=== PATIENT | female | born 1980 | race American Indian/Alaskan Native ===

== ENCOUNTER 2016-11-02 09:43 | Emergency (ER) | payer MEDICAID ==
--- NOTE | 2016-11-02 09:47 | EDM.PDOC ---
ED HPI GENERAL MEDICAL PROBLEM - General Chief Complaint: Back Pain or Injury Stated Complaint: [id number] BACK Time Seen by Provider: 11/02/16 09:47 Source of Information: Reports: Patient, RN, RN Notes Reviewed History Limitations: Reports: No Limitations - History of Present Illness INITIAL COMMENTS - FREE TEXT/NARRATIVE: Patient complaining of onset of back pain yesterday. No known injury or activity. Reports pain from base of neck to upper back to the sacrum. Described as an ache with muscle spasm. Denies flank pain or fever or chills. Denies radiating pain, numbness or tingling. Quality: Reports: Ache Severity: Severe Improves with: Reports: None Worsens with: Reports: None Associated Symptoms: Reports: No Other Symptoms Back Pain Score (Numeric/FACES): 6 - Related Data Allergies Allergy/AdvReac Type Severity Reaction Status Date / Time No Known Allergies Allergy Verified 11/02/16 09:55 Home Meds: Home Meds FLUoxetine [PROzac] 20 mg PO DAILY 11/02/16 [History] Gabapentin [Gabapentin] 600 mg PO TID 11/02/16 [History] Omeprazole 20 mg PO DAILY 11/02/16 [History] traZODone HCl [Trazodone HCl] 100 mg PO DAILY 11/02/16 [History] Social & Family History - Family History Family Medical History: Noncontributory ED ROS GENERAL - Review of Systems Review Of Systems: ROS reveals no pertinent complaints other than HPI. ED EXAM,LOWER BACK PAIN/INJURY - Physical Exam Exam: See Below Exam Limited By: No Limitations General Appearance: Alert, WD/WN, No Apparent Distress Neck: Normal Inspection, Supple, Non-Tender, Full Range of Motion Respiratory/Chest: No Respiratory Distress Cardiovascular: Normal Peripheral Pulses, Regular Rate, Rhythm, No Edema, No Gallop, No JVD, No Murmur, No Rub GI/Abdominal: Normal Bowel Sounds, Soft, Non-Tender, No Organomegaly, No Distention, No Abnormal Bruit, No Mass Back Exam: Other (generalized paraspinal and midline tenderness throughout T and L spine with muscle spasms and decreased ROM.) Course - Vital Signs Last Recorded V/S: Last Vital Signs Temp 36.0 C 11/02/16 09:58 Pulse 83 11/02/16 09:58 Resp 16 06/11/17 09:58 BP 104/73 11/02/16 09:58 Pulse Ox 98 11/02/16 09:58 - Orders/Labs/Meds Orders: Active Orders 24 hr Category Date Time Status UA W/MICROSCOPIC [URIN] Stat Lab 11/02/16 09:52 Results Labs: Laboratory Tests 11/02/16 11/02/16 11/02/16 Range/Units 09:52 09:52 09:52 Urine Color Yellow (YELLOW) Urine Appearance Slightly cloudy (CLEAR) Urine pH 7.0 (5.0-9.0) Ur Specific [place] 1.015 (1.005-1.030) Urine Protein Negative (NEGATIVE) Urine Glucose (UA) Negative (NEGATIVE) Urine Ketones Negative (NEGATIVE) Urine Occult Blood Negative (NEGATIVE) Urine Nitrite Positive H (NEGATIVE) Urine Bilirubin Negative (NEGATIVE) Urine Urobilinogen 0.2 (0.2-1.0) mg/dL Ur Leukocyte Esterase Trace H (NEGATIVE) Urine HCG, Qual Negative Urine Opiates Screen Negative (NEGATIVE) Ur Oxycodone Screen Negative (NEGATIVE) Urine Methadone Screen Negative (NEGATIVE) Ur Barbiturates Screen Negative (NEGATIVE) U Tricyclic Antidepress Negative (NEGATIVE) Ur Phencyclidine Scrn Negative (NEGATIVE) Ur Amphetamine Screen Negative (NEGATIVE) U Methamphetamines Scrn Negative (NEGATIVE) Urine MDMA Screen Negative (NEGATIVE) U Benzodiazepines Scrn Negative (NEGATIVE) Urine Cocaine Screen Negative (NEGATIVE) U Marijuana (THC) Screen Negative (NEGATIVE) Meds: Medications Discontinued Medications Generic Name Dose Route Start Last Admin Trade Name Freq PRN Reason Stop Dose Admin Cyclobenzaprine HCl 10 mg 11/02/16 10:07 11/02/16 10:16 Flexeril PO 11/02/16 10:08 10 mg ONETIME ONE Administration Ketorolac Tromethamine 60 mg 11/02/16 10:06 11/02/16 10:16 Toradol IM 11/02/16 10:07 60 mg ONETIME ONE Administration Departure - Departure Time of Disposition: 10:27 Disposition: Home, Self-Care 01 Condition: good Clinical Impression: Muscle spasm of back, Pyelonephritis Acute back pain Qualifiers: Back pain location: back pain in unspecified location Back pain laterality: midline Qualified Code(s): M54.9 - Dorsalgia, unspecified - Discharge Information Instructions: Back Pain, Adult, [id number], Pyelonephritis, Adult, Easy-to- Read Forms: ED Department Discharge Additional Instructions: RX: Cephalexin 500mg. RX: Cyclobenzaprine 10mg. RX: Naprosyn 500mg. Alternate heat and ice to the back. Activity as tolerated. Follow up in clinic this week, if not improving. - My Orders Last 24 Hours: My Active Orders 11/02/16 09:52 UA W/MICROSCOPIC [URIN] Stat - Assessment/Plan Last 24 Hours: My Active Orders 11/02/16 09:52 UA W/MICROSCOPIC [URIN] Stat
[2016-11-02 10:01] VITALS: BP 104/73
[2016-11-02] MEDS ORDERED: Ketorolac 30 MG/ML SDV IM ONE (10:06)
[2016-11-02] MEDS ORDERED: Cyclobenzaprine 10 MG Tab PO ONE (10:07)
[2016-11-02] MEDS ORDERED: Cephalexin 500 MG Cap PO ONE (10:26)
== END 2016-11-02 10:32 | disposition home or self-care (01) ==
LOC: DL.ED 09:43
DX: M62.830 Muscle spasm of back (principal); N12 Tubulo-interstitial nephritis, not specified as acute or chronic; M54.9 Dorsalgia, unspecified; Z79.899 Other long term (current) drug therapy
CPT/HCPCS: 80305; 81001; 81025; 96372; 99284; A9270; J1885

== ENCOUNTER 2016-11-24 14:12 | Emergency (ER) | payer MEDICAID ==
[2016-11-24 15:01] VITALS: BP 97/68
[2016-11-24] MEDS ORDERED: HYDROmorphone 1 MG/ML Syringe IVPUSH ONE ×2 (16:18→17:55)
[2016-11-24] MEDS ORDERED: Ondansetron 4 MG/2 ML SDV IV ONE (16:18)
[2016-11-24] MEDS ORDERED: Sodium Chloride 0.9% 1,000 ML IV ONE (16:18)
[2016-11-24] MEDS ORDERED: cefTRIAXone 1 GM in Sodium Chloride 0.9% 50 ML IV ONE (16:18)
[2016-11-24] MEDS ORDERED: Sodium Chloride 0.9% 10 ML Syringe FLUSH PRN (16:18)
[2016-11-24] MEDS ORDERED: Ketorolac 30 MG/ML SDV IVPUSH ONE (16:18)
[2016-11-24 16:53] LABS: CHLORIDE,CL 105 mmol/L (101-111); SODIUM,NA 141 mmol/L (135-145)
--- NOTE | 2016-11-24 17:04 | CT ---
Clinical history: 36-year-old female smoker with hematuria, a history of "kidney stones" and now lef t flank pain. Scan technique: Volume acquisition of data emergency unenhanced CT scan of the abdomen and pelvis (" stone study" kidneys/ureters/bladder) obtained with patient lying supine on the Siemens multi slice CT scanner [place], [place]. All data archived in the PACS system for storage, reformatting and study. Interpretation: 1. Surgically absent gallbladder (clips RUQ). 2. *Normal reniform size, axis and configuration. No sign of nephrolithiasis or pyelocaliectasis, ei ther kidney. Several punctate calcifications within the bony pelvis, on the left, appeared to lie outside the cou rse of the ureter without associated ureterectasis i.e. suggests probable phleboliths (no comparison exams immediately available at this institution). 3. Numerous diverticula in the sigmoid colon without current signs of associated inflammation. Marleen l appendix RLQ. 4. Normal midline uterus. Small cysts left ovary and a 2 cm diameter cyst right adnexa presumably ov lyubov in origin. 5. No other pelvic or abdominal mass lesion, inflammatory "dirty" peritoneal fat, signs of mechanica l bowel obstruction, ascites or free intraperitoneal air. Unenhanced liver, stomach, spleen, pancrea s and adrenal glands unremarkable. 6. Normal caliber aortoiliac vessels. Lumbar spine unremarkable. CONCLUSION: Sigmoid diverticulosis. Small ovarian cysts, bilaterally. Probable phleboliths pelvis, on the left (tiny nonobstructing ureterolith possible but unlikely). Cl inical?
--- NOTE | 2016-11-24 18:18 | EDM.PDOC ---
Scribed by Wendy Dave 11/24/16 [id number] for Orion Bear MD ED HPI GENERAL MEDICAL PROBLEM - General Chief Complaint: Back Pain or Injury Stated Complaint: BACK PAINS, VOMITTING, [id number] Time Seen by Provider: 11/24/16 15:05 Source of Information: Reports: Patient, RN, RN Notes Reviewed History Limitations: Reports: No Limitations - History of Present Illness INITIAL COMMENTS - FREE TEXT/NARRATIVE: Complained of onset of left flank pain yesterday with fever, chills, nausea and vomiting. The pain radiates from the left flank to the LLQ and groin. Quality: Reports: Ache Severity: Severe Improves with: Reports: None Worsens with: Reports: None Associated Symptoms: Reports: No Other Symptoms Middle Back Pain Score (Numeric/FACES): 7 - Related Data Allergies Allergy/AdvReac Type Severity Reaction Status Date / Time No Known Allergies Allergy Verified 11/24/16 14:56 Home Meds: Home Meds FLUoxetine [PROzac] 20 mg PO DAILY 11/02/16 [History] Gabapentin [Gabapentin] 600 mg PO TID 11/02/16 [History] Omeprazole 20 mg PO DAILY 11/02/16 [History] traZODone HCl [Trazodone HCl] 100 mg PO DAILY 11/02/16 [History] Past Medical History HEENT History: Reports: Impaired Vision Genitourinary History: Reports: Renal Calculus Musculoskeletal History: Reports: Other (See Below) Other Musculoskeletal History: scoliosis as a child Neurological History: Reports: Neuropathy, Peripheral Psychiatric History: Reports: Depression - Past Surgical History GI Surgical History: Reports: Hernia, Inguinal Social & Family History - Family History Family Medical History: Noncontributory - Tobacco Use Smoking Status *Q: Current Every Day Smoker Years of Tobacco use: 21 Packs/Tins Daily: 1 - Caffeine Use Caffeine Use: Reports: Coffee, Energy Drinks, Soda - Recreational Drug Use Recreational Drug Use: No ED ROS GENERAL - Review of Systems Review Of Systems: ROS reveals no pertinent complaints other than HPI. ED EXAM,LOWER BACK PAIN/INJURY - Physical Exam Exam: See Below Exam Limited By: No Limitations General Appearance: Other (tearful) Head: Atraumatic, Normocephalic Neck: Normal Inspection, Supple, Non-Tender, Full Range of Motion Respiratory/Chest: No Respiratory Distress, Lungs Clear, Normal Breath Sounds, No Accessory Muscle Use, Chest Non-Tender Cardiovascular: Normal Peripheral Pulses, Regular Rate, Rhythm, No Edema, No Gallop, No JVD, No Murmur, No Rub GI/Abdominal: Other (LUQ and LLQ tenderness otherwise normal.) Back Exam: CVA Tenderness (L) Extremities: Normal Inspection, Normal Range of Motion, Non-Tender, No Pedal Edema, Normal Capillary Refill Neurological: Alert, Normal Mood/Affect, Normal Dorsiflexion, CN II-XII Intact, Normal Plantar Flexion, Normal Gait, Normal Reflexes, No Motor/Sensory Deficits , Oriented x 3 Psychiatric: Normal Affect, Normal Mood Skin Exam: Warm Course - Vital Signs Last Recorded V/S: Last Vital Signs Temp 36.6 C 11/24/16 14:57 Pulse 100 11/24/16 14:57 Resp 16 11/24/16 14:57 BP 97/68 11/24/16 14:57 Pulse Ox 100 11/24/16 14:57 - Orders/Labs/Meds Orders: Active Orders 24 hr Category Date Time Status Peripheral IV Care [RC] . DIRECTED Care 11/24/16 16:18 Active CULTURE URINE [RM] Stat Lab 11/24/16 15:05 Received Sodium Chloride 0.9% [Saline Flush] Med 11/24/16 16:18 Active 10 ml FLUSH ASDIRECTED PRN Peripheral IV Insertion Adult [OM.PC] Stat Oth 11/24/16 16:18 Ordered Medication Orders Sodium Chloride (Saline Flush) 10 ml FLUSH ASDIRECTED PRN PRN Reason: Keep Vein Open Last Admin: 11/24/16 16:21 Dose: 10 ml Labs: Laboratory Tests 11/24/16 11/24/16 11/24/16 Range/Units 15:05 15:05 16:26 WBC 10.1 H (5.0-10.0) 10^3/uL RBC 4.61 (4.2-5.4) 10^6/uL Hgb 12.4 (12.0-16.0) g/dL Hct 38.8 (37.0-47.0) % MCV 84.2 (80-100) fL MCH 26.9 L (27.0-34.0) pg MCHC 32.0 L (33.0-35.0) g/dL Plt Count 312 (150-450) 10^3/uL Neut % (Auto) 54.8 (42.2-75.2) % Lymph % (Auto) 33.7 (20.5-50.1) % Jack % (Auto) 7.0 (2-8) % Eos % (Auto) 4.1 H (1.0-3.0) % Baso % (Auto) 0.4 (0.0-1.0) % Sodium (135-145) mmol/L Potassium (3.6-5.0) mmol/L Chloride (101-111) mmol/L Carbon Dioxide (21.0-31.0) mmol/L Anion Gap BUN (7-18) mg/dL Creatinine (0.6-1.3) mg/dL Est Cr Clr Drug Dosing mL/min Estimated GFR (MDRD) BUN/Creatinine Ratio Glucose (74-105) mg/dL Calcium (8.4-10.2) mg/dl Total Bilirubin (0.2-1.0) mg/dL AST (10-42) IU/L ALT (10-60) IU/L Alkaline Phosphatase (42-121) IU/L Total Protein (6.7-8.2) g/dl Albumin (3.2-5.5) g/dl Globulin Albumin/Globulin Ratio Urine Color Dark yellow (YELLOW) Urine Appearance Cloudy (CLEAR) Urine pH 7.0 (5.0-9.0) Ur Specific [place] 1.020 (1.005-1.030) Urine Protein Trace H (NEGATIVE) Urine Glucose (UA) Negative (NEGATIVE) Urine Ketones Trace H (NEGATIVE) Urine Occult Blood Negative (NEGATIVE) Urine Nitrite Positive H (NEGATIVE) Urine Bilirubin Small H (NEGATIVE) Urine Urobilinogen 2.0 H (0.2-1.0) mg/dL Ur Leukocyte Esterase Small H (NEGATIVE) Urine RBC 0-5 /HPF Urine WBC 10-20 H (0-5/HPF) /HPF Ur Epithelial Cells Moderate H /HPF Urine Bacteria Many H (0-FEW/HPF) /HPF Urine Mucus Rare /LPF Urine HCG, Qual Negative 11/24/16 Range/Units 16:26 WBC (5.0-10.0) 10^3/uL RBC (4.2-5.4) 10^6/uL Hgb (12.0-16.0) g/dL Hct (37.0-47.0) % MCV (80-100) fL MCH (27.0-34.0) pg MCHC (33.0-35.0) g/dL Plt Count (150-450) 10^3/uL Neut % (Auto) (42.2-75.2) % Lymph % (Auto) (20.5-50.1) % Jack % (Auto) (2-8) % Eos % (Auto) (1.0-3.0) % Baso % (Auto) (0.0-1.0) % Sodium 141 (135-145) mmol/L Potassium 3.9 (3.6-5.0) mmol/L Chloride 105 (101-111) mmol/L Carbon Dioxide 25.0 (21.0-31.0) mmol/L Anion Gap 14.9 BUN 15 (7-18) mg/dL Creatinine 0.8 (0.6-1.3) mg/dL Est Cr Clr Drug Dosing 69.16 mL/min Estimated GFR (MDRD) > 60 BUN/Creatinine Ratio 18.75 Glucose 83 (74-105) mg/dL Calcium 9.1 (8.4-10.2) mg/dl Total Bilirubin 0.6 (0.2-1.0) mg/dL AST 85 H (10-42) IU/L ALT 109 H (10-60) IU/L Alkaline Phosphatase 94 (42-121) IU/L Total Protein 7.1 (6.7-8.2) g/dl Albumin 3.8 (3.2-5.5) g/dl Globulin 3.3 Albumin/Globulin Ratio 1.15 Urine Color (YELLOW) Urine Appearance (CLEAR) Urine pH (5.0-9.0) Ur Specific [place] (1.005-1.030) Urine Protein (NEGATIVE) Urine Glucose (UA) (NEGATIVE) Urine Ketones (NEGATIVE) Urine Occult Blood (NEGATIVE) Urine Nitrite (NEGATIVE) Urine Bilirubin (NEGATIVE) Urine Urobilinogen (0.2-1.0) mg/dL Ur Leukocyte Esterase (NEGATIVE) Urine RBC /HPF Urine WBC (0-5/HPF) /HPF Ur Epithelial Cells /HPF Urine Bacteria (0-FEW/HPF) /HPF Urine Mucus /LPF Urine HCG, Qual Meds: Medications Generic Name Dose Route Start Last Admin Trade Name Gela PRN Reason Stop Dose Admin Sodium Chloride 10 ml 11/24/16 16:18 11/24/16 16:21 Saline Flush FLUSH 10 ml ASDIRECTED PRN Administration Keep Vein Open Discontinued Medications Generic Name Dose Route Start Last Admin Trade Name Gela PRN Reason Stop Dose Admin Hydromorphone HCl 1 mg 11/24/16 16:18 11/24/16 16:31 Dilaudid IVPUSH 11/24/16 16:19 1 mg ONETIME ONE Administration Hydromorphone HCl 1 mg 11/24/16 17:55 11/24/16 18:07 Dilaudid IVPUSH 11/24/16 17:56 1 mg ONETIME ONE Administration Sodium Chloride 1,000 mls @ 999 mls/hr 11/24/16 16:18 11/24/16 16:27 Normal Saline IV 11/24/16 17:18 999 mls/hr .BOLUS ONE Administration Ceftriaxone Sodium 1 gm/ 50 mls @ 100 mls/hr 11/24/16 16:18 11/24/16 16:27 Sodium Chloride IV 11/24/16 16:47 100 mls/hr ONETIME ONE Administration Ketorolac Tromethamine 30 mg 11/24/16 16:18 11/24/16 16:30 Toradol IVPUSH 11/24/16 16:19 30 mg ONETIME ONE Administration Ondansetron HCl 4 mg 11/24/16 16:18 11/24/16 16:31 Zofran IV 11/24/16 16:19 4 mg ONETIME ONE Administration - Radiology Interpretation Free Text/Narrative:: CT scan abdomen and pelvis: Per rad report reveals sigmoid diverticulosis. Small ovarian cysts, bilaterally. Probable phleboliths pelvis, on the left ( tiny nonobstructing ureterolith possible but unlikely. Departure - Departure Time of Disposition: 18:16 Disposition: Home, Self-Care 01 Condition: Fair Clinical Impression: Pyelonephritis - Discharge Information Instructions: Pyelonephritis, Adult, [id number] Forms: ED Department Discharge Additional Instructions: RX: Pyridium 200mg. RX: Cipro 500mg. RX: Phenergan 25mg. Follow up in clinic in 2-3 days for recheck. - My Orders Last 24 Hours: My Active Orders 11/24/16 15:05 CULTURE URINE [RM] Stat 07/03/17 16:18 Peripheral IV Care [RC] . DIRECTED Sodium Chloride 0.9% [Saline Flush] 10 ml FLUSH ASDIRECTED PRN Peripheral IV Insertion Adult [OM.PC] Stat - Assessment/Plan Last 24 Hours: My Active Orders 11/24/16 15:05 CULTURE URINE [RM] Stat 11/24/16 16:18 Peripheral IV Care [RC] . DIRECTED Sodium Chloride 0.9% [Saline Flush] 10 ml FLUSH ASDIRECTED PRN Peripheral IV Insertion Adult [OM.PC] Stat I have read and agree with the documentation that has been completed regarding this visit. By signing this record, I attest that the documentation was completed in my physical presence and is an accurate record of the encounter.
== END 2016-11-24 18:23 | disposition home or self-care (01) ==
LOC: DL.ED 14:12
DX: N12 Tubulo-interstitial nephritis, not specified as acute or chronic (principal); H54.7 Unspecified visual loss; F17.210 Nicotine dependence, cigarettes, uncomplicated; Z79.899 Other long term (current) drug therapy
CPT/HCPCS: 36415; 74176; 80053; 81001; 81025; 85025; 87086; 96365; 96375; 96376; 99284; J0696; J1170; J1885; J2405; J7030; J7050; 87077; 87088; 87186

== ENCOUNTER 2016-12-14 00:07 | Emergency (ER) | payer MEDICAID ==
[2016-12-14 00:31] VITALS: BP 101/66
--- NOTE | 2016-12-14 00:47 | EDM.PDOC ---
ED HPI GENERAL MEDICAL PROBLEM - General Chief Complaint: ENT Problem Stated Complaint: ALLERGIES AND EARS ARE DRAINING Time Seen by Provider: 12/14/16 00:44 Source of Information: Reports: Patient History Limitations: Reports: No Limitations - History of Present Illness INITIAL COMMENTS - FREE TEXT/NARRATIVE: c/o LBP & ear pain with drainage. gives h/o pyelo lower back Pain Score (Numeric/FACES): 7 - Related Data Allergies Allergy/AdvReac Type Severity Reaction Status Date / Time No Known Allergies Allergy Verified 12/14/16 00:22 Home Meds: Home Meds FLUoxetine [PROzac] 20 mg PO DAILY 11/02/16 [History] Gabapentin [Gabapentin] 600 mg PO TID 11/02/16 [History] Omeprazole 20 mg PO DAILY 11/02/16 [History] traZODone HCl [Trazodone HCl] 100 mg PO DAILY 11/02/16 [History] Past Medical History HEENT History: Reports: Impaired Vision Cardiovascular History: Reports: None Respiratory History: Reports: Asthma Gastrointestinal History: Reports: None Genitourinary History: Reports: Renal Calculus 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 Musculoskeletal History: Reports: Other (See Below) Other Musculoskeletal History: scoliosis as a child Neurological History: Reports: Neuropathy, Peripheral Psychiatric History: Reports: Depression Endocrine/Metabolic History: Reports: None Hematologic History: Reports: None Immunologic History: Reports: None Oncologic (Cancer) History: Reports: None Dermatologic History: Reports: None - Infectious Disease History Infectious Disease History: Reports: None - Past Surgical History Head Surgeries/Procedures: Reports: None GI Surgical History: Reports: Hernia, Inguinal Female Surgical History: Reports: None Musculoskeletal Surgical History: Reports: None Social & Family History - Family History Family Medical History: Noncontributory - Tobacco Use Smoking Status *Q: Current Every Day Smoker Years of Tobacco use: 20 Packs/Tins Daily: 0.5 - Caffeine Use Caffeine Use: Reports: Coffee - Recreational Drug Use Recreational Drug Use: Yes Drug Use in Last 12 Months: Yes Recreational Drug Type: Reports: Methamphetamine Other Recreational Drug Type: quit in august 2016 Recreational Drug Use Frequency: Not Used In Over 5 Months ED ROS ENT - Review of Systems Review Of Systems: ROS reveals no pertinent complaints other than HPI. ED EXAM, ENT - Physical Exam Exam: See Below Exam Limited By: No Limitations General Appearance: Alert, WD/WN, No Apparent Distress Ears: Hearing Grossly Normal, Canal Swelling, TM Dullness Mouth/Throat: Normal Inspection, Normal Oropharynx Head: Atraumatic Neck: Non-Tender, Full Range of Motion Respiratory/Chest: No Respiratory Distress Cardiovascular: Regular Rate, Rhythm GI/Abdominal: Soft, Non-Tender Back: Muscle Spasm, Other (LS, without radiculitis) Neurological: Alert, Oriented, Normal Cognition, No Motor/Sensory Deficits Psychiatric: Normal Affect, Normal Mood Skin: Warm, Dry Lymphatic: No Adenopathy Course - Vital Signs Last Recorded V/S: Last Vital Signs Temp 36.1 C 12/14/16 00:30 Pulse 95 12/14/16 00:30 Resp 16 12/14/16 00:30 BP 101/66 12/14/16 00:30 Pulse Ox 97 12/14/16 00:30 - Orders/Labs/Meds Orders: Active Orders 24 hr Category Date Time Status Sulfamethoxazole/Trimethoprim [Septra DS] Med 12/14/16 01:15 Once 1 tab PO ONETIME ONE Labs: Laboratory Tests 12/14/16 12/14/16 Range/Units 00:45 00:45 Urine Color Yellow (YELLOW) Urine Appearance Slightly cloudy (CLEAR) Urine pH 5.5 (5.0-9.0) Ur Specific [place] 1.025 (1.005-1.030) Urine Protein Negative (NEGATIVE) Urine Glucose (UA) Negative (NEGATIVE) Urine Ketones Negative (NEGATIVE) Urine Occult Blood Small H (NEGATIVE) Urine Nitrite Negative (NEGATIVE) Urine Bilirubin Small H (NEGATIVE) Urine Urobilinogen 0.2 (0.2-1.0) mg/dL Ur Leukocyte Esterase Trace H (NEGATIVE) Urine RBC 0-5 /HPF Urine WBC 10-20 H (0-5/HPF) /HPF Ur Epithelial Cells Many H /HPF Calcium Oxalate Crystal Few H /HPF Urine Bacteria Many H (0-FEW/HPF) /HPF Urine Mucus Rare /LPF Urine HCG, Qual Negative - Re-Assessments/Exams Free Text/Narrative Re-Assessment/Exam: 12/14/16 01:16 results discussed with pt. Departure - Departure Time of Disposition: 01:16 Disposition: Home, Self-Care 01 Condition: Good Clinical Impression: Muscle spasm of back Otitis externa Qualifiers: Otitis externa type: diffuse Chronicity: unspecified Laterality: bilateral Qualified Code(s): H60.313 - Diffuse otitis externa, bilateral - Discharge Information Instructions: Ear Drainage, [id number] Forms: ED Department Discharge Additional Instructions: 1) don't get water into ears 2) try heat to sore areas 3) follow up at clinic rx given; corticosporin otic flexeril 10mg bactrim DS - My Orders Last 24 Hours: My Active Orders 12/14/16 01:15 Sulfamethoxazole/Trimethoprim [Septra DS] 1 tab PO ONETIME ONE - Assessment/Plan Last 24 Hours: My Active Orders 12/14/16 01:15 Sulfamethoxazole/Trimethoprim [Septra DS] 1 tab PO ONETIME ONE
[2016-12-14] MEDS ORDERED: Sulfamethoxazole/Trimethoprim 800-160 MG Tab PO ONE (01:15)
[2016-12-14] MEDS ORDERED: Hydrocortisone/Neomycin/Polymyxin B Otic Susp 10 ML Bottle ONE (01:35)
[2016-12-14] MEDS ORDERED: Hydrocortisone/Neomycin/Polymyxin B Otic Susp 10 ML Bottle EARBOTH ONE (01:35)
[2016-12-14] MEDS ORDERED: Acetaminophen/HYDROcodone 325-10 MG Tab ONE (01:35)
== END 2016-12-14 01:45 | disposition home or self-care (01) ==
LOC: DL.ED 00:07
DX: H60.313 Diffuse otitis externa, bilateral (principal); M62.830 Muscle spasm of back; H54.7 Unspecified visual loss; J45.909 Unspecified asthma, uncomplicated; F32.9 Major depressive disorder, single episode, unspecified; F17.210 Nicotine dependence, cigarettes, uncomplicated; Z79.899 Other long term (current) drug therapy
CPT/HCPCS: 81001; 81025; 99283; A9270

== ENCOUNTER 2017-01-05 23:14 | Emergency (ER) | payer MEDICAID ==
[2017-01-05] MEDS ORDERED: Sodium Chloride 0.9% 1,000 ML IV ONE (23:18)
[2017-01-05] MEDS ORDERED: Pantoprazole 40 MG Vial IVPUSH ONE (23:18)
--- NOTE | 2017-01-05 23:21 | EDM.PDOC ---
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 Epigastric Pain Score (Numeric/FACES): 7 - Related Data Allergies Allergy/AdvReac Type Severity Reaction Status Date / Time No Known Allergies Allergy Verified 01/05/17 23:28 Home Meds: Home Meds FLUoxetine [PROzac] 20 mg PO DAILY 11/02/16 [History] Gabapentin [Gabapentin] 600 mg PO TID 11/02/16 [History] Omeprazole 20 mg PO DAILY 11/02/16 [History] traZODone HCl [Trazodone HCl] 100 mg PO DAILY 11/02/16 [History] Loratadine [Claritin] 10 mg PO DAILY 01/05/17 [History] Past Medical History HEENT History: Reports: Impaired Vision Cardiovascular History: Reports: None Respiratory History: Reports: Asthma Gastrointestinal History: Reports: None Genitourinary History: Reports: Renal Calculus AIDS SOCIAL WORKER History: Reports: 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 Musculoskeletal History: Reports: Other (See Below) Other Musculoskeletal History: scoliosis as a child Neurological History: Reports: Neuropathy, Peripheral Psychiatric History: Reports: Depression Endocrine/Metabolic History: Reports: None Hematologic History: Reports: None Immunologic History: Reports: None Oncologic (Cancer) History: Reports: None Dermatologic History: Reports: None - Infectious Disease History Infectious Disease History: Reports: None - Past Surgical History Head Surgeries/Procedures: Reports: None GI Surgical History: Reports: Hernia, Inguinal Female Surgical History: Reports: None Musculoskeletal Surgical History: Reports: None Social & Family History - Family History Family Medical History: Noncontributory - Tobacco Use Smoking Status *Q: Current Every Day Smoker Years of Tobacco use: 20 Packs/Tins Daily: 0.5 - Caffeine Use Caffeine Use: Reports: Coffee - Recreational Drug Use Recreational Drug Use: Yes Drug Use in Last 12 Months: Yes Recreational Drug Type: Reports: Methamphetamine Other Recreational Drug Type: quit in august 2016 Recreational Drug Use Frequency: Not Used In Over 5 Months ED ROS GENERAL - Review of Systems Review Of Systems: ROS reveals no pertinent complaints other than HPI. ED EXAM, GI/ABD - Physical Exam Exam: See Below Exam Limited By: No Limitations General Appearance: Alert, WD/WN, Mild Distress, Other (upset) Ears: Hearing Grossly Normal Throat/Mouth: Normal Voice, No Airway Compromise Head: Atraumatic Neck: Non-Tender, Full Range of Motion Respiratory/Chest: No Respiratory Distress Cardiovascular: Regular Rate, Rhythm GI/Abdominal Exam: Tender, Other (epiG). No: Guarding, Rigid, Rebound Neurological: Alert, Oriented, Normal Cognition, Normal Gait, No Motor/Sensory Deficits Psychiatric: Tearful Skin Exam: Warm, Dry, Normal Color Lymphatic: No Adenopathy Course - Vital Signs Last Recorded V/S: Last Vital Signs Temp 35.7 C 01/05/17 23:31 Pulse 64 01/06/17 01:26 Resp 16 01/05/17 23:31 BP 114/81 01/06/17 01:26 Pulse Ox 100 01/06/17 01:26 - Orders/Labs/Meds Labs: Laboratory Tests 01/05/17 01/05/17 Range/Units 23:21 23:21 WBC 10.6 H (5.0-10.0) 10^3/uL RBC 4.25 (4.2-5.4) 10^6/uL Hgb 11.5 L (12.0-16.0) g/dL Hct 35.4 L (37.0-47.0) % MCV 83.3 (80-100) fL MCH 27.1 (27.0-34.0) pg MCHC 32.5 L (33.0-35.0) g/dL Plt Count 350 (150-450) 10^3/uL Neut % (Auto) 52.2 (42.2-75.2) % Lymph % (Auto) 33.7 (20.5-50.1) % [place] % (Auto) 9.0 H (2-8) % Eos % (Auto) 4.7 H (1.0-3.0) % Baso % (Auto) 0.4 (0.0-1.0) % Sodium 141 (135-145) mmol/L Potassium 3.4 L (3.6-5.0) mmol/L Chloride 105 (101-111) mmol/L Carbon Dioxide 22.0 (21.0-31.0) mmol/L Anion Gap 17.4 BUN 12 (7-18) mg/dL Creatinine 0.7 (0.6-1.3) mg/dL Est Cr Clr Drug Dosing 78.27 mL/min Estimated GFR (MDRD) > 60 BUN/Creatinine Ratio 17.14 Glucose 96 (74-105) mg/dL Calcium 9.0 (8.4-10.2) mg/dl Total Bilirubin 0.4 (0.2-1.0) mg/dL AST 85 H (10-42) IU/L ALT 90 H (10-60) IU/L Alkaline Phosphatase 77 (42-121) IU/L Total Protein 7.1 (6.7-8.2) g/dl Albumin 3.8 (3.2-5.5) g/dl Globulin 3.3 Albumin/Globulin Ratio 1.15 Amylase 34 (28-100) U/L Lipase 29 (22-51) U/L Meds: Medications Discontinued Medications Generic Name Dose Route Start Last Admin Trade Name Freq PRN Reason Stop Dose Admin Al Hydroxide/Mg Hydroxide 30 ml 01/06/17 01:16 01/06/17 01:24 Gi Cocktail PO 01/06/17 01:17 30 ml ONETIME ONE Administration Sodium Chloride 1,000 mls @ 500 mls/hr 01/05/17 23:18 01/05/17 23:51 Normal Saline IV 01/06/17 01:17 500 mls/hr .BOLUS ONE Administration Pantoprazole Sodium 80 mg 01/05/17 23:18 01/05/17 23:53 Protonix Iv IVPUSH 01/05/17 23:19 80 mg .BOLUS ONE Administration - Re-Assessments/Exams Free Text/Narrative Re-Assessment/Exam: 01/06/17 01:19 results discussed with pt who had no further episode of vomiting blood since being here. still c/o some epig burning sensation. states had gastroscope 1 1/2 year ago in [place] 01/06/17 01:39 re-exam; s/p GI cocktail = better but not 100% Departure - Departure Time of Disposition: 01:39 Disposition: Home, Self-Care 01 Condition: Good Clinical Impression: Peptic ulcer, Abdominal pain - Discharge Information Instructions: Abdominal Pain, Adult, [id number] Forms: ED Department Discharge Additional Instructions: 1) see clinic tomorrow for GASTROSCOPY 2) avoid fatty oily fried spicy foods 3) recheck as needed
[2017-01-05 23:49] LABS: CHLORIDE,CL 105 mmol/L (101-111); SODIUM,NA 141 mmol/L (135-145)
[2017-01-06] MEDS ORDERED: GI Cocktail Oral Solution 30 ML PO ONE (01:16)
[2017-01-06 01:27] VITALS: BP 114/81
[2017-01-06] MEDS ORDERED: LORazepam 1 MG Tab ONE (01:44)
[2017-01-06] MEDS ORDERED: LORazepam 1 MG Tab PO ONE (01:44)
== END 2017-01-06 01:57 | disposition home or self-care (01) ==
LOC: DL.ED 23:14
DX: K27.9 Peptic ulcer, site unspecified, unspecified as acute or chronic, without hemorrhage or perforation (principal); H54.7 Unspecified visual loss; J45.909 Unspecified asthma, uncomplicated; F17.210 Nicotine dependence, cigarettes, uncomplicated; Z79.899 Other long term (current) drug therapy; Z98.890 Other specified postprocedural states
CPT/HCPCS: 36415; 80053; 82150; 83690; 85025; 96365; 96366; 96375; 99284; A9270; C9113; J7030

== ENCOUNTER 2017-01-06 12:58 | Emergency (ER) | payer MEDICAID ==
[2017-01-06 13:10] VITALS: BP 99/63
[2017-01-06] MEDS ORDERED: Sodium Chloride 0.9% 1,000 ML IV ONE (13:22)
[2017-01-06] MEDS ORDERED: Pantoprazole 40 MG Vial IVPUSH ONE (13:42)
[2017-01-06] MEDS ORDERED: Ondansetron 4 MG/2 ML SDV IV ONE (13:42)
--- NOTE | 2017-01-06 13:47 | EDM.PDOC ---
ED HPI GENERAL MEDICAL PROBLEM - General Chief Complaint: Gastrointestinal Problem Stated Complaint: [id number] STOMACH THROWING UP BLOOD Time Seen by Provider: 01/06/17 13:35 Source of Information: Reports: Patient History Limitations: Reports: No Limitations - History of Present Illness INITIAL COMMENTS - FREE TEXT/NARRATIVE: This 37 yo female patient reports to the ED with burning in her stomach, vomiting blood and have bloody stools. The patient reports she ran out of her Omeprazole about 1 week ago and has not had an appointment to fill her prescription. The patient was seen in the ED last night for the same symptoms, but has not gotten any better. The patient reports she has an appointment scheduled for next week to discuss endoscopy. Onset: Gradual Duration: Day(s):, Constant, Getting Worse Location: Reports: Abdomen Quality: Reports: Ache, Burning, Dull Severity: Moderate Improves with: Reports: None Worsens with: Reports: None Associated Symptoms: Reports: No Other Symptoms Abdomen Pain Score (Numeric/FACES): 7 - Related Data Allergies Allergy/AdvReac Type Severity Reaction Status Date / Time No Known Allergies Allergy Verified 01/05/17 23:28 Home Meds: Home Meds FLUoxetine [PROzac] 20 mg PO DAILY 11/02/16 [History] Gabapentin [Gabapentin] 600 mg PO TID 11/02/16 [History] Omeprazole 20 mg PO DAILY 11/02/16 [History] traZODone HCl [Trazodone HCl] 100 mg PO DAILY 11/02/16 [History] Loratadine [Claritin] 10 mg PO DAILY 01/05/17 [History] Past Medical History HEENT History: Reports: Impaired Vision Cardiovascular History: Reports: None Respiratory History: Reports: Asthma Gastrointestinal History: Reports: None Genitourinary History: Reports: Renal Calculus 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 Musculoskeletal History: Reports: Other (See Below) Other Musculoskeletal History: scoliosis as a child Neurological History: Reports: Neuropathy, Peripheral Psychiatric History: Reports: Depression Endocrine/Metabolic History: Reports: None Hematologic History: Reports: None Immunologic History: Reports: None Oncologic (Cancer) History: Reports: None Dermatologic History: Reports: None - Infectious Disease History Infectious Disease History: Reports: None - Past Surgical History Head Surgeries/Procedures: Reports: None GI Surgical History: Reports: Hernia, Inguinal Female Surgical History: Reports: None Musculoskeletal Surgical History: Reports: None Social & Family History - Family History Family Medical History: Noncontributory - Tobacco Use Smoking Status *Q: Current Every Day Smoker Years of Tobacco use: 20 Packs/Tins Daily: 0.5 - Caffeine Use Caffeine Use: Reports: Coffee - Recreational Drug Use Recreational Drug Use: Yes Drug Use in Last 12 Months: Yes Recreational Drug Type: Reports: Methamphetamine Other Recreational Drug Type: quit in august 2016 Recreational Drug Use Frequency: Not Used In Over 5 Months ED ROS GENERAL - Review of Systems Review Of Systems: ROS reveals no pertinent complaints other than HPI. ED EXAM, GI/ABD - Physical Exam Exam: See Below General Appearance: Alert, WD/WN, Moderate Distress Eyes: Bilateral: Normal Appearance, EOMI Ears: Normal External Exam, Normal Canal, Hearing Grossly Normal, Normal TMs Nose: Normal Inspection, Normal Mucosa, No Blood Throat/Mouth: Normal Inspection, Normal Lips, Normal Teeth, Normal Gums, Normal Oropharynx, Normal Voice, No Airway Compromise Head: Atraumatic, Normocephalic Neck: Normal Inspection, Supple, Non-Tender, Full Range of Motion Respiratory/Chest: No Respiratory Distress, Lungs Clear, Normal Breath Sounds, No Accessory Muscle Use, Chest Non-Tender Cardiovascular: Normal Peripheral Pulses, Regular Rate, Rhythm, No Edema, No Gallop, No JVD, No Murmur, No Rub GI/Abdominal Exam: Normal Bowel Sounds, Soft, Tender (diffuse upper abdominal tenderness to palpation) (Female) Exam: Deferred Rectal (Female) Exam: Deferred Back Exam: Normal Inspection, Full Range of Motion, NT Extremities: Normal Inspection, Normal Range of Motion, Non-Tender, Normal Capillary Refill, No Pedal Edema Neurological: Alert, Oriented, CN II-XII Intact, Normal Cognition, Normal Gait, Normal Reflexes, No Motor/Sensory Deficits Psychiatric: Depressed Mood, Flat Affect Skin Exam: Warm, Dry, Intact, Normal Color, No Rash Lymphatic: No Adenopathy Course - Vital Signs Last Recorded V/S: Last Vital Signs Temp 36.4 C 01/06/17 13:09 Pulse 86 01/06/17 13:09 Resp 18 01/06/17 13:09 BP 99/63 01/06/17 13:09 Pulse Ox 96 01/06/17 13:09 - Orders/Labs/Meds Labs: Laboratory Tests 01/06/17 01/06/17 Range/Units 13:36 13:36 WBC 7.1 (5.0-10.0) 10^3/uL RBC 4.17 L (4.2-5.4) 10^6/uL Hgb 11.2 L (12.0-16.0) g/dL Hct 35.1 L (37.0-47.0) % MCV 84.2 (80-100) fL MCH 26.9 L (27.0-34.0) pg MCHC 31.9 L (33.0-35.0) g/dL Plt Count 337 (150-450) 10^3/uL Neut % (Auto) 54.4 (42.2-75.2) % Lymph % (Auto) 33.2 (20.5-50.1) % [place] % (Auto) 7.6 (2-8) % Eos % (Auto) 4.4 H (1.0-3.0) % Baso % (Auto) 0.4 (0.0-1.0) % Sodium 139 (135-145) mmol/L Potassium 3.6 (3.6-5.0) mmol/L Chloride 106 (101-111) mmol/L Carbon Dioxide 23.0 (21.0-31.0) mmol/L Anion Gap 13.6 BUN 8 (7-18) mg/dL Creatinine 0.8 (0.6-1.3) mg/dL Est Cr Clr Drug Dosing 68.49 mL/min Estimated GFR (MDRD) > 60 BUN/Creatinine Ratio 10.00 Glucose 79 (74-105) mg/dL Calcium 8.5 (8.4-10.2) mg/dl Total Bilirubin 0.7 (0.2-1.0) mg/dL AST 106 H (10-42) IU/L ALT 99 H (10-60) IU/L Alkaline Phosphatase 73 (42-121) IU/L Total Protein 6.8 (6.7-8.2) g/dl Albumin 3.6 (3.2-5.5) g/dl Globulin 3.2 Albumin/Globulin Ratio 1.13 Meds: Medications Discontinued Medications Generic Name Dose Route Start Last Admin Trade Name Freq PRN Reason Stop Dose Admin Al Hydroxide/Mg Hydroxide 30 ml 01/06/17 14:48 01/06/17 14:57 Gi Cocktail PO 01/06/17 14:49 30 ml ONETIME ONE Administration Sodium Chloride 1,000 mls @ 999 mls/hr 01/06/17 13:22 01/06/17 14:10 Normal Saline IV 01/06/17 14:22 999 mls/hr .BOLUS ONE Administration Ondansetron HCl 4 mg 01/06/17 13:42 01/06/17 14:10 Zofran IV 01/06/17 13:43 4 mg ONETIME ONE Administration Pantoprazole Sodium 80 mg 01/06/17 13:42 01/06/17 14:11 Protonix Iv IVPUSH 01/06/17 13:43 80 mg .BOLUS ONE Administration - Re-Assessments/Exams Free Text/Narrative Re-Assessment/Exam: 01/06/17 14:49 The patient reports she no longer feels nauseated, but continues to have a burning in her stomach. The patient reports she does not need to have a bowel movement. A ES was done to assess for blood. An order was placed for a GI cocktail. Departure - Departure Time of Disposition: 15:46 Disposition: Home, Self-Care 01 Condition: Fair Clinical Impression: Peptic ulcer, Abdominal pain - Discharge Information Instructions: Peptic Ulcer, [id number], Abdominal Pain, Adult Forms: ED Department Discharge Care Plan Goals: The patient was advised of the examination and lab results during the visit. The patient was given IV Protonix, IV Zofran and an oral GI Cocktail during the visit. The patient was discharged with a script for Zofran ODT (4 mg) to take 1 by mouth every 6 hours and Omeprazole (20 mg) to take 1 by mouth 2 times per day. The patient should follow-up with her primary care facility for continued evaluation and management.
[2017-01-06 14:03] LABS: CHLORIDE,CL 106 mmol/L (101-111); SODIUM,NA 139 mmol/L (135-145)
[2017-01-06] MEDS ORDERED: GI Cocktail Oral Solution 30 ML PO ONE (14:48)
== END 2017-01-06 16:00 | disposition home or self-care (01) ==
LOC: DL.ED 12:58
DX: K27.9 Peptic ulcer, site unspecified, unspecified as acute or chronic, without hemorrhage or perforation (principal); H54.7 Unspecified visual loss; J45.909 Unspecified asthma, uncomplicated; F32.9 Major depressive disorder, single episode, unspecified; F17.210 Nicotine dependence, cigarettes, uncomplicated; G62.9 Polyneuropathy, unspecified; Z79.899 Other long term (current) drug therapy
CPT/HCPCS: 36415; 80053; 82272; 85025; 96361; 96374; 96375; 99284; A9270; C9113; J2405; J7030

== ENCOUNTER 2017-01-16 05:11 | Day surgery (SDC) | payer MEDICAID ==
[2017-01-16] MEDS ORDERED: fentaNYL 100 MCG/2 ML SDV IV ONE ×3 (05:12→06:33)
[2017-01-16] MEDS ORDERED: Midazolam 1 MG/ML 2 ML SDV IV ONE ×3 (05:12→06:34)
[2017-01-16] MEDS ORDERED: Midazolam 1 MG/ML 2 ML SDV ONE (06:16)
[2017-01-16] MEDS ORDERED: fentaNYL 100 MCG/2 ML SDV ONE (06:17)
[2017-01-16] MEDS ORDERED: Sodium Chloride 0.9% 10 ML Syringe FLUSH PRN ×2 (06:53→07:20)
[2017-01-16] MEDS ORDERED: Dextrose 5%-0.45% NaCl 1,000 ML IV SCH ×2 (07:00→07:30)
[2017-01-16 08:16] VITALS: BP 88/53
--- NOTE | 2017-01-16 08:43 | OR ---
DATE: 01/16/2017 PROCEDURE: Esophagogastroduodenoscopy and multiple pinch biopsies. INSTRUMENT USED: GIF-H180 Olympus video panendoscope. PREMEDICATIONS: No oral topical anesthesia used. Fentanyl 100 mcg intravenous, Versed 2 mg intravenous. The procedure was done under pulse oximetry, BP recording, and burring wheel operator. INDICATION: The patient with abdominal pain as well as vomiting and hematemesis with iron-deficiency anemia, and chronic hepatitis C. Esophagogastroduodenoscopy is performed for detection of any active erosive lesions, Holly's esophagus and/or malignancy also under consideration, H. pylori status to be determined, small bowel biopsies to be obtained for celiac disease if indicated, endoscopic hemostasis therapy if needed. DESCRIPTION OF PROCEDURE: The scope was passed with ease. Adequate visualization of the esophagus was made from proximal to distal areas. No upper esophageal lesions identified. No distal esophageal stricture. No uphill or downhill esophageal varices. No Neyda-Espinal tear. No evidence of erosive esophagitis by [place] criteria. No esophageal polyp or tumor mass identified. No proximal gastric varices noted. Gastric fundus examination by retroflexion showed no polypoid lesions. No gastric ulcer, malignant mass, or vascular ectasia identified. Scattered gastric antral erosions were noted without bleeding from them. Duodenal bulb showed no ulcer. Visualized second part of the duodenum was unremarkable. Multiple pinch biopsies 4 in number were taken from different areas of the second part of the duodenum and tissues were also obtained from the duodenal bulb at 9 and 12 o'clock positions and sent for any histopathologic evidence of celiac disease. Multiple pinch biopsies were taken from the gastric, antrum, and proximal body and sent for PyloriTek test for H. pylori and histopathology. No bleeding was noted from any of the visualized areas at the completion of examination. IMPRESSION: Gastric antral erosions. The patient tolerated the procedure well. [facility] /[id number]
== END 2017-01-16 08:49 | disposition home or self-care (01) ==
LOC: DL.ENDO 05:11
PROVIDERS: ATTEND Internal Medicine Gastroenterology
DX: K25.9 Gastric ulcer, unspecified as acute or chronic, without hemorrhage or perforation (principal); K92.0 Hematemesis; E66.09 Other obesity due to excess calories; F41.1 Generalized anxiety disorder; F32.9 Major depressive disorder, single episode, unspecified; D64.9 Anemia, unspecified; F17.210 Nicotine dependence, cigarettes, uncomplicated
CPT/HCPCS: 43239; 87077; J2250; J3010; J7042

== ENCOUNTER 2017-01-19 05:28 | Day surgery (SDC) | payer MEDICAID ==
[2017-01-19] MEDS ORDERED: Midazolam 1 MG/ML 2 ML SDV IV ONE ×4 (05:29→06:37)
[2017-01-19] MEDS ORDERED: fentaNYL 100 MCG/2 ML SDV IV ONE ×2 (05:29→06:29)
[2017-01-19] MEDS ORDERED: Dextrose 5%-0.45% NaCl 1,000 ML IV SCH (06:00)
[2017-01-19] MEDS ORDERED: fentaNYL 100 MCG/2 ML SDV ONE (06:17)
[2017-01-19] MEDS ORDERED: Midazolam 1 MG/ML 2 ML SDV ONE (06:17)
[2017-01-19 08:25] VITALS: BP 104/59
--- NOTE | 2017-01-19 09:06 | OR ---
DATE: 01/19/2017 PROCEDURE: Total colonoscopy. INSTRUMENT USED: CF-H180AL Olympus video colonoscope. PREMEDICATIONS: Fentanyl 100 mcg intravenous, Versed 3 mg intravenous. Nasal 2 L O2 cannula. The procedure was done under pulse oximetry, BP recording, and data entry machine operator. INDICATION: The patient with rectal bleeding and anemia, unexplained. Colonoscopic examination is done for detection of any polypoid lesions and removal, endoscopic hemostasis therapy if needed. DESCRIPTION OF PROCEDURE: Initial rectal exam was unremarkable. Rigid anoscopy was normal. The colonoscope was passed with ease. Few scattered diverticula were noted. The scope was passed with ease up to the ileocecal area, photographs were taken of the normal-appearing cecum identified by double-bulged ileocecal folds. No bleeding was noted from any of the visualized areas at the commencement of the examination. No stricture. No vascular ectasia. No large isolated ulcerations seen. No evidence of diffuse inflammatory bowel disease in the form of friability, contact bleeding, or ulcerations. No polyp or tumor mass identified. Probing the proximal sides of folds and flexures, using adequate distention and clearing up the stool material withdrawal of the scope was made, cecum to rectum time over 6 minutes. No bleeding was noted from the visualized areas at the completion of the examination. IMPRESSION: Diverticulosis. The patient tolerated the procedure well. [facility] /[id number]
== END 2017-01-19 08:52 | disposition home or self-care (01) ==
LOC: DL.ENDO 05:28
PROVIDERS: ATTEND Internal Medicine Gastroenterology
DX: K57.30 Diverticulosis of large intestine without perforation or abscess without bleeding (principal); F17.210 Nicotine dependence, cigarettes, uncomplicated; E66.09 Other obesity due to excess calories; F41.1 Generalized anxiety disorder; F32.9 Major depressive disorder, single episode, unspecified; D64.9 Anemia, unspecified
CPT/HCPCS: 45378; J2250; J3010; J7042

== ENCOUNTER 2017-01-28 23:16 | Emergency (ER) | payer MEDICAID ==
[2017-01-28 23:45] VITALS: BP 126/33
[2017-01-29] MEDS ORDERED: metroNIDAZOLE 250 MG Tab PO ONE (00:06)
--- NOTE | 2017-01-29 00:14 | EDM.PDOC ---
ED HPI GENERAL MEDICAL PROBLEM - General Chief Complaint: Genitourinary Problem Stated Complaint: UTI Time Seen by Provider: 01/29/17 00:05 Source of Information: Reports: Patient History Limitations: Reports: No Limitations - History of Present Illness INITIAL COMMENTS - FREE TEXT/NARRATIVE: This 37 yo female patient reports to the ED due to burning after urination and increased lower abdominal pain. The patient reports her symptoms started this morning and have been getting worse throughout the day. Onset Date: 01/28/17 Duration: Constant, Getting Worse Location: Reports: Abdomen Quality: Reports: Burning, Dull Severity: Moderate Improves with: Reports: None Worsens with: Reports: None Associated Symptoms: Reports: No Other Symptoms - Related Data Allergies Allergy/AdvReac Type Severity Reaction Status Date / Time No Known Allergies Allergy Verified 01/28/17 23:37 Home Meds: Home Meds FLUoxetine [PROzac] 20 mg PO DAILY 11/02/16 [History] Gabapentin [Gabapentin] 800 mg PO BID 11/02/16 [History] Omeprazole 20 mg PO DAILY 11/02/16 [History] traZODone HCl [Trazodone HCl] 100 mg PO DAILY 11/02/16 [History] Loratadine [Claritin] 10 mg PO DAILY 01/05/17 [History] Past Medical History HEENT History: Reports: Impaired Vision Cardiovascular History: Reports: None Respiratory History: Reports: Asthma Gastrointestinal History: Reports: None Genitourinary History: Reports: Renal Calculus Other Genitourinary History: kidney stone surgery. 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: Musculoskeletal History: Reports: Other (See Below) Other Musculoskeletal History: scoliosis as a child Neurological History: Reports: Neuropathy, Peripheral Psychiatric History: Reports: Depression Endocrine/Metabolic History: Reports: None Hematologic History: Reports: None Immunologic History: Reports: None Oncologic (Cancer) History: Reports: None Dermatologic History: Reports: None - Infectious Disease History Infectious Disease History: Reports: None - Past Surgical History Head Surgeries/Procedures: Reports: None GI Surgical History: Reports: Cholecystectomy, Hernia, Inguinal Female Surgical History: Reports: Section Musculoskeletal Surgical History: Reports: None Social & Family History - Family History Family Medical History: Noncontributory - Tobacco Use Smoking Status *Q: Heavy Tobacco Smoker Years of Tobacco use: 20 Packs/Tins Daily: 1 Used Tobacco, but Quit: No Second Hand Smoke Exposure: Yes - Caffeine Use Caffeine Use: Reports: Coffee Other Caffeine Use: HALF CUP DAILY - Recreational Drug Use Recreational Drug Use: No Drug Use in Last 12 Months: Yes Recreational Drug Type: Reports: Methamphetamine Other Recreational Drug Type: quit in august 2016 Recreational Drug Use Frequency: Not Used In Over 5 Months ED ROS GENERAL - Review of Systems Review Of Systems: ROS reveals no pertinent complaints other than HPI. ED EXAM, RENAL/ - Physical Exam Exam: See Below Exam Limited By: No Limitations General Appearance: Alert, WD/WN, No Apparent Distress Eye Exam: Bilateral Eye: EOMI, Normal Inspection, PERRL Ears: Normal External Exam, Normal Canal, Hearing Grossly Normal, Normal TMs Nose: Normal Inspection, Normal Mucosa, No Blood Throat/Mouth: Normal Inspection, Normal Lips, Normal Teeth, Normal Gums, Normal Oropharynx, Normal Voice, No Airway Compromise Head: Atraumatic, Normocephalic Neck: Normal Inspection, Supple, Non-Tender, Full Range of Motion Respiratory/Chest: No Respiratory Distress, Lungs Clear, Normal Breath Sounds, No Accessory Muscle Use, Chest Non-Tender Cardiovascular: Normal Peripheral Pulses, Regular Rate, Rhythm, No Edema, No Gallop, No JVD, No Murmur, No Rub GI/Abdominal: Normal Bowel Sounds, Soft, Non-Tender, No Organomegaly, No Distention, No Abnormal Bruit, No Mass (Female) Exam: Deferred Rectal (Female) Exam: Deferred Back Exam: Normal Inspection, Full Range of Motion, NT Extremities: Normal Inspection, Normal Range of Motion, Non-Tender, Normal Capillary Refill, No Pedal Edema Neurological: Alert, Oriented, CN II-XII Intact, Normal Cognition, Normal Gait, Normal Reflexes, No Motor/Sensory Deficits Psychiatric: Normal Affect, Normal Mood Skin Exam: Warm, Dry, Intact, Normal Color, No Rash Course - Vital Signs Last Recorded V/S: Last Vital Signs Temp 36.4 C 01/28/17 23:39 Pulse 65 01/28/17 23:39 Resp 18 01/28/17 23:39 BP 126/33 L 01/28/17 23:39 Pulse Ox 98 01/28/17 23:39 - Orders/Labs/Meds Orders: Active Orders 24 hr Category Date Time Status CHLAMYDIA TRACHOMATIS/GC AMPLF Urgent Lab 01/29/17 00:05 Ordered Labs: Laboratory Tests 01/28/17 01/28/17 Range/Units 23:30 23:30 Urine Color Yellow (YELLOW) Urine Appearance Slightly cloudy (CLEAR) Urine pH 5.5 (5.0-9.0) Ur Specific [place] 1.010 (1.005-1.030) Urine Protein Negative (NEGATIVE) Urine Glucose (UA) Negative (NEGATIVE) Urine Ketones Negative (NEGATIVE) Urine Occult Blood Negative (NEGATIVE) Urine Nitrite Negative (NEGATIVE) Urine Bilirubin Negative (NEGATIVE) Urine Urobilinogen 1.0 (0.2-1.0) mg/dL Ur Leukocyte Esterase Moderate H (NEGATIVE) Urine RBC 0-5 /HPF Urine WBC 5-10 H (0-5/HPF) /HPF Ur Epithelial Cells Many H /HPF Urine Bacteria Many H (0-FEW/HPF) /HPF Urinalysis Comment Urine HCG, Qual Negative Meds: Medications Discontinued Medications Generic Name Dose Route Start Last Admin Trade Name Gela PRN Reason Stop Dose Admin Metronidazole 500 mg 01/29/17 00:06 01/29/17 00:13 Metronidazole PO 01/29/17 00:07 500 mg ONETIME ONE Administration Departure - Departure Time of Disposition: 00:12 Disposition: Home, Self-Care 01 Condition: Fair Clinical Impression: Bacterial vaginosis - Discharge Information Instructions: Bacterial Vaginosis, [id number] Forms: ED Department Discharge Care Plan Goals: The patient was advised of the examination and lab results during the visit. The patient was given an oral dose of Metronidazole (500 mg) while in the ED. The patient was discharged with a script for Metronidazole (500 mg) to take 1 by mouth 2 times per day for 7 days. If the patient has any additional symptoms or concerns, the patient should follow-up with her primary care facility or return to the emergency department. - My Orders Last 24 Hours: My Active Orders 01/29/17 00:05 CHLAMYDIA TRACHOMATIS/GC AMPLF Urgent - Assessment/Plan Last 24 Hours: My Active Orders 01/29/17 00:05 CHLAMYDIA TRACHOMATIS/GC AMPLF Urgent
== END 2017-01-29 00:20 | disposition home or self-care (01) ==
LOC: DL.ED 23:16
DX: N76.0 Acute vaginitis (principal); H54.7 Unspecified visual loss; J45.909 Unspecified asthma, uncomplicated; F17.210 Nicotine dependence, cigarettes, uncomplicated; Z90.49 Acquired absence of other specified parts of digestive tract; Z79.899 Other long term (current) drug therapy
CPT/HCPCS: 81001; 81025; 87491; 87591; 99283; A9270